=== PATIENT | female | born 1970 | race Asian ===

== ENCOUNTER → 2017-02-07 | Outpatient (CLI) | payer BC ==
--- NOTE | 2017-02-07 15:07 | RAD ---
Right upper quadrant abdominal ultrasound, 02/07/2017: History: Right upper quadrant pain. The gallbladder is within normal limits in size. There is no sonographic evidence of cholelithiasis. The gallbladder are not thickened. No bile duct dilatation is seen. The visualized portions of the liver, pancreas and right kidney are unremarkable. IMPRESSION: No significant abnormality is detected.
== END | disposition home or self-care (01) ==
LOC: US 14:35
PROVIDERS: ATTEND Specialist
DX: R10.11 Right upper quadrant pain (principal)
CPT/HCPCS: 76705